=== PATIENT | female | born 1965 | race Caucasian/White ===

== ENCOUNTER 2017-03-30 03:35 | Emergency (ER) | payer MEDICAID ==
[~2017-03-30] VITALS: Ht 162.6 cm; Wt 108.9 kg
[2017-03-30 03:45] VITALS: BP_SYST 143
--- NOTE | 2017-03-30 03:45 | NUR ---
Patient to ER bed 8 to gown for evaluation. Side rails up.
--- NOTE | 2017-03-30 03:48 | NUR ---
Patient AOx4, ambulatory, presents to ER with complaint of left back pain 4/10 x2 days. Patient states she coughed and "heard something pop on left lower back". No other symptoms or complaints at this time.
--- NOTE | 2017-03-30 03:56 | NUR ---
JULES Prater at bedside for medical evaluation.
[2017-03-30] MEDS ORDERED: KETOROLAC TROMETHAMINE 60 MG/2 ML VIAL IM ONE (04:15)
--- NOTE | 2017-03-30 04:40 | NUR ---
No adverse reactions noted after medication administration. Will continue to monitor.
[2017-03-30 04:51] VITALS: BP_SYST 139
--- NOTE | 2017-03-30 04:51 | NUR ---
Patient given written and verbal discharge instructions and verbalizes understanding. ER MD discussed with patient the results and treatment provided. Patient in stable condition. ID arm band removed. Rx of Ibuprofen and Promethazine given. Patient educated on pain management and to follow up with PMD. Pain Scale 0/10. Opportunity for questions provided and answered. Medication side effect fact sheet provided.
== END 2017-03-30 04:51 | disposition home or self-care (01) ==
LOC: SED 03:35
DX: M54.5 Low back pain (principal); J06.9 Acute upper respiratory infection, unspecified; F17.200 Nicotine dependence, unspecified, uncomplicated
CPT/HCPCS: 96372; 99283; J1885

== ENCOUNTER 2017-09-26 19:43 | Emergency (ER) | payer MEDICAID ==
[~2017-09-26] VITALS: Ht 162.6 cm; Wt 111.1 kg
[2017-09-26 19:51] VITALS: BP_SYST 122
[2017-09-26] MEDS ORDERED: KETOROLAC TROMETHAMINE 30 MG VIAL IM ONE (21:45)
[2017-09-26 22:55] VITALS: BP_SYST 120
== END 2017-09-26 22:55 | disposition home or self-care (01) ==
LOC: SED 19:43
DX: M75.51 Bursitis of right shoulder (principal)
CPT/HCPCS: 73030; 96372; 99284; J1885